=== PATIENT | female | born 1980 | race African-American/Black ===

== ENCOUNTER 2016-10-26 16:18 | Emergency (ER) | payer OTHER ==
[~2016-10-26] VITALS: Ht 167.6 cm; Wt 72.6 kg
[~2016-10-26 16:18] MED LIST: BUTALB-ACETAMI1 EACH PO; FLUDROCORTISON0.1 M1 PO; HYDROCORTISONE10 M2 PO; LEVOTHYROXINE125 MCG PO; LEVOXYL100 MCG PO; NARATRIPTAN HC2.5 MG PO; RESTASIS1 EACH OPH; ZOFRAN4 M2 PO
--- NOTE | 2016-10-26 17:57 | ED HEADACHE COMPLAINT ---
History of Present Illness General Chief Complaint: Headache Stated Complaint: HEADACHE Source: patient Exam Limitations: no limitations Allergies Coded Allergies: NO KNOWN ALLERGIES (10/30/15) Reconcile Medications Amitriptyline HCl 50 MG TABLET 1 TAB PO QPM PREVENTATIVE FOR MIGRAINES ( Reported) Cyclosporine (Restasis) 0.05 % DROPERETTE 1 GTT OPH BID DRY EYE (Reported) Fludrocortisone Acetate 0.1 MG TABLET 1 TAB PO DAILY ADDISONS (Reported) Hydrocortisone 10 MG TABLET 2 TAB PO QAM HASHIMOTOS (Reported) Hydrocortisone 10 MG TABLET 1 TAB PO DAILY HASHIMOTOS (Reported) Levothyroxine Sodium (Levoxyl) 100 MCG TABLET 1 TAB PO DAILY HASHIMOTOS ( Reported) SUMAtriptan (Zembrace Symtouch) 3 MG/0.5 ML PEN.INJCTR 3 MG AD AD PRN MIGRAINES (Reported) Sumatriptan Succinate 100 MG TABLET 1 TAB PO AD PRN MIGRAINES (Reported) may repeat in 2 hours; do not exceed 200 mg in 24 hours Topiramate (Trokendi XR) 50 MG CAP.ER.24H 1 CAP PO DAILY MIGRAINES (Reported) Triage Note: PT STATES SHE HAS A BAD MIGRAINE THAT JUST WONT GO AWAY. 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 PT CALLED HER NEURO MD AND WAS TOLD TO COME TO ED. PT WITH HX OF MIGRAINES Triage Nurses Notes Reviewed? yes : No Patient currently breastfeeds: No HPI: This patient is a 36-year-old female who presented to the emergency department today for evaluation of a migraine headache. This patient does have a history of migraine headaches. Her neurologist is Dr. Ferreira who suggested that she come into the emergency department. This patient typically takes an injection, Zembrance, when her migraine headaches get severe. However, this as well as sumatriptan did not do anything to help her pain today. The patient reported that her current episode started at approximately 10:00 this morning and has been constant since onset. Nonradiating and throbbing. The patient called her neurologist who suggested that she come to the emergency department. The patient reported associated photophobia, nausea, and one episode of vomiting. She denied any neck pain, chest pain, difficult breathing, or abdominal pain. No visual changes. (MARIZA ROSENBERG PA-C) Vital Signs & Intake/Output Vital Signs & Intake/Output Vital Signs Date Time Temp Pulse Resp B/P B/P Pulse O2 O2 Flow FiO2 Mean Ox Delivery Rate 10/26 1950 99.1 85 16 127/72 100 Room Air 10/26 1622 96.8 78 16 126/86 95 Room Air ED Intake and Output 05 0000 10/26 1200 Intake Total Output Total Balance Patient 160 lb Weight Weight Reported by Patient Measurement Method Past History Travel History Traveled to [place] past 21 day No Medical History Any Pertinent Medical History? see below for history Neurological: migraine EENT: NONE Cardiovascular: NONE Respiratory: NONE Gastrointestinal: NONE Hepatic: NONE Renal: NONE Musculoskeletal: NONE Psychiatric: NONE Endocrine: Marc's thyroiditis, DEBRA'S DISEASE Blood Disorders: NONE Cancer(s): NONE Surgical History Surgical History: Psychosocial History What is your primary language Tanzanian Tobacco Use: Never used ETOH Use: denies use Illicit Drug Use: denies illicit drug use Family History Hx Contributory? No (MARIZA ROSENBERG PA-C) Review of Systems Review of Systems Constitutional: Reports: no symptoms. Eyes: Reports: no symptoms. Ears, Nose, Throat, Mouth: Reports: no symptoms. Respiratory: Reports: no symptoms. Cardiovascular: Reports: no symptoms. Gastrointestinal/Abdominal: Reports: see HPI. Genitourinary: Reports: no symptoms. Musculoskeletal: Reports: no symptoms. Skin: Reports: no symptoms. Neurological/Psychological: Reports: see HPI. All Other Systems: Reviewed and Negative (MARIZA ROSENBERG PA-C) Physical Exam Physical Exam Cranial Nerves: normal hearing, normal speech, PERRL Comments: Well-developed well-nourished person in no acute distress HEENT: Normal EENT exam, head normocephalic/atraumatic Pupils equally round and reactive to light. Neck: Supple, no lymphadenopathy Back: Normal gait Respiratory: No respiratory distress. Speaking in full sentences Extremity: Normal and equal pulses Neuro: Alert oriented x3, cranial nerves II through XII grossly intact. Skin: No appreciable rash on exposed skin, skin is warm and dry. Psych: Mood and affect is normal Core Measures Severe Sepsis Present: No Septic Shock Present: No (MARIZA ROSENBERG PA-C) Progress Differential Diagnosis: carotid dissection, cav sinus thromb, cluster MENENDEZ, IC mass/tumor, intracranial Hem., meningitis, migraine MENENDEZ, sinusitis, SSS thrombosis, tension MENENDEZ, temporal arteritis, TMJ syndrome, viral cephalgia Plan of Care: Orders Procedure Date/time Status Regular Diet 10/26 D Active Comments: 10/26/2016 7:36:05 PM: I was at the patient's bedside for reevaluation. She reported that her pain is currently a 0 out of 10. She is requesting to go home at this time. (SHAKIRA RODRIGUEZ,MARIZA) Departure Departure Disposition: HOME OR SELF CARE Condition: Stable Clinical Impression Primary Impression: Migraine Qualifiers: Migraine type: unspecified Status migrainosus presence: without status migrainosus Intractability: not intractable Qualified Code: G43.909 - Migraine, unspecified, not intractable, without status migrainosus Referrals: TOLU MARTINES MD (PCP/Family) Additional Instructions: Please follow-up with your neurologist. Rest. Return for any worsening symptoms or concerns. Departure Forms: Customer Survey General Discharge Information (MARIZA ROSENBERG PA-C) PA/SUBSCRIPTION AGENT Co-Sign Statement Statement: ED Attending supervision documentation- [] I saw and evaluated the patient. I have also reviewed all the pertinent lab results and diagnostic results. I agree with the findings and the plan of care as documented in the PA's/SUBSCRIPTION AGENT's documentation. [x] I have reviewed the ED Record and agree with the PA's/SUBSCRIPTION AGENT's documentation. [] Additions or exceptions (if any) to the PAs/SUBSCRIPTION AGENT's note and plan are summarized below: [] (LIZETT ACOSTA,MAYA Walters)
[2016-10-26] MEDS ORDERED: HYDROCORTISONE10 M2 PO ×2 (18:19)
[2016-10-26] MEDS ORDERED: SUMATRIPTAN SU100 M1 PO (18:20)
[2016-10-26] MEDS ORDERED: FLUDROCORTISON0.1 M1 PO (18:20)
[2016-10-26] MEDS ORDERED: AMITRIPTYLINE H50 M2 PO (18:21)
[2016-10-26] MEDS ORDERED: TROKENDI XR50 MG PO (18:21)
[2016-10-26] MEDS ORDERED: ZEMBRACE S3 MG/0.5 M AD (18:22)
[2016-10-26 19:50] VITALS: BP 127/72
== END 2016-10-26 19:49 ==
LOC: ERH 16:18
DX: G43.909 Migraine, unspecified, not intractable, without status migrainosus (principal)
CPT/HCPCS: 96361; 96374; 96375; J1200; J1885; J2405